=== PATIENT | female | born 1995 | race Caucasian/White ===

== ENCOUNTER 2017-12-27 20:00 | Emergency (ER) | payer OTHER, SELFPAY ==
[2017-12-27 20:02] VITALS: BP 142/76; PULSE 74; RESP 17; TEMP 37.2; O2SAT 100; BMI 25.4
--- NOTE | 2017-12-27 20:48 | ED.VISSUMM ---
- ER Visit Summary Date of Service: 12/27/17 Chief Complaint: I think I have a UTI History of Present Illness: The patient is a 22 F without any significant past medical history other than a prior UTI in August. Patient states she has had dysuria and hematuria starting this evening. No fever. No vomiting. No diarrhea. No vaginal bleeding. Last menstrual period ended one week ago. Physical Examination: Well-appearing young female. Vital signs are stable and afebrile. She does not look septic or toxic. She is in no acute distress. HEENT exam unremarkable. Neck nontender no lymphadenopathy. Lungs clear to auscultation bilaterally. Heart regular rate and rhythm no murmur. Abdomen is soft and nontender. Nondistended. Normal bowel sounds no peritoneal signs. She is moving all 4 extremities. Neurovascular intact. Nontender no edema. Back exam nontender. No CVA tenderness. Neurologic exam normal. Test Results: Urinalysis shows greater than 100 white blood cells. Greater than 100 red blood cells. No nitrates no bacteria. Given her symptoms of dysuria and hematuria I am comfortable treating this is a UTI. Emergency Department Course and Treatment: Patient treated his urinary tract infection/cystitis. Bactrim p.o. 1 twice daily for 5 days. Pyridium. Treatment Plan: Bactrim for 5 days. Return if worse. Referred to Dr. Casper Shook. Disposition: Discharge Impression: Acute urinary tract infection/cystitis This note was generated with [employer] dictation software. It may contain incorrect words, spelling, and punctuation that were not noted in review of the chart prior to signing ED Disposition - Plan for ED Patient: Chief Complaint: Complaint Referrals: NOT,DEFINED [NON-STAFF] -
[2017-12-27] MEDS: Ibuprofen 600 MG Tablet PO (20:56)
[2017-12-27] MEDS: Phenazopyridine 95 MG Tablet 190 MG PO (20:56)
[2017-12-27 21:04] LABS: Bacteria 0 SEEN /hpf (None Seen); Mucous, Urine 0 SEEN /hpf (<or=2+); Squamous Epithelial Cells - UA 0 SEEN /hpf (5-10)
[2017-12-27 21:05] LABS: Color, Urine Amber (Yellow); Glucose, Dipstick Normal (Normal); Ketone-Dipstick Negative (Negative); Leukocyte Esterase-Dipstick 500 /ul (Negative); Nitrite-Dipstick Negative (Negative); Occult Blood-Urine 250 /ul (Negative); Protein-Dipstick 100 mg/dl (Negative); Specific Gravity, Urine 1.015 (1.002-1.030); Urine Bilirubin Dipstick Negative (Negative); Urine Clarity Cloudy (Clear); Urine Urobilinogen Normal (Normal)
[2017-12-27 21:19] LABS: Red Blood Cells-Urine > 100 SEEN /hpf (0-5); White Blood Cells >100 SEEN /hpf (0-5)
--- NOTE | 2017-12-27 21:54 | ED.DEP ---
ED Disposition - Plan for ED Patient: Disposition: Home or Assisted Living Chief Complaint: Complaint Instructions: ED UTI Cystitis Female Prescriptions: Phenazopyridine HCl [Pyridium] 200 mg PO BID PRN PRN #6 tab PRN Reason: Pain Smz/Tmp Ds [Bactrim Ds] 1 tab PO BID #10 tab Referrals: Juan J Shook MD [STAFF PHYSICIAN] - 3-5 Days if not improving Additional Instructions: Plenty of fluids and rest. Cranberry juice. Tylenol and/or Motrin for. Pyridium for burning. Bactrim 1 pill twice a day for 5 days. Return if feeling worse or follow-up your primary care physician as needed.
[2017-12-27] MEDS: Smz/Tmp Ds Tablet 1 TABLET PO (21:59)
--- NOTE | 2017-12-27 22:02 | ED.RN ---
DISCHARGE INSTRUCTIONS GIVEN TO AND REVIEWED WITH PATIENT, PATIENT DENIES QUESTIONS OR CONCERNS AND VOICES UNDERSTANDING OF DISCHARGE INSTRUCTIONS. PT AMBULATES OUT OF ROOM WITHOUT DIFFICULTY.
== END 2017-12-27 22:04 | disposition home or self-care (01) ==
PROVIDERS: Emergency Provider Emergency Medicine
DX: N30.01 Acute cystitis with hematuria (principal); B96.89 Other specified bacterial agents as the cause of diseases classified elsewhere
CPT/HCPCS: 81001; 99283

== ENCOUNTER 2020-08-30 10:49 | Day surgery (SDC) | payer OTHER, SELFPAY ==
--- NOTE | 2020-08-28 16:09 | HP.PCM_ITS ---
History and Physical Date of Admission: 08/30/20 HPI: The patient is a 24 year old female presenting for pre-operative visit. She is scheduled for?laparoscopic bilateral salpingectomy, for?sterilization? on?08/30. ??Procedure discussed along with risks, benefits and complications. ?Other alternatives discussed for management. Consent form signed??Yes.? PAST MEDICAL HISTORY PAST MEDICAL HISTORY Diagnosis Date ? Allergic rhinitis, cause unspecified ? ? Allergic rhinitis ? ? PAST SURGICAL HISTORY PAST SURGICAL HISTORY Procedure Laterality Date ? UNSPECIFIED ORAL SURGERY PROCEDURE, BY REPORT ? ? ? [place] ? ? CURRENT MEDICATIONS Current Outpatient Medications Medication Sig Dispense Refill ? Desogestrel-Ethinyl Estradiol (APRI) 0.15-0.03 mg per tablet Take 1 tablet by mouth once daily. Take active pills only. 4 Package 11 ? cranberry fruit extract (CRANBERRY ORAL) Take by mouth. ? ? ? B.ANI/L.ACI/L.ALIYA/L.PLAN/L.RAQUEL (PROBIOTIC FORMULA ORAL) Take ?by mouth. ? ? ? BIOTIN ORAL Take ?by mouth once daily. ? ? ? phenazopyridine (PYRIDIUM) 200 mg tablet Take 200 mg by mouth three times daily as needed. ? ? ? sulfamethoxazole-trimethoprim (BACTRIM) 400-80 mg per tablet Take 1 tablet by mouth twice daily. ? ? ? azithromycin (ZITHROMAX) 500 mg tablet 2 tab po X 1 (Patient not taking: Reported on 09/23/2018 ) 2 tablet 0 ? PYRIDOXINE HCL (VITAMIN B-6 ORAL) Take ?by mouth once daily. ? ? ? CALCIUM CARBONATE/VITAMIN D3 (VITAMIN D-3 ORAL) Take ?by mouth once daily. ? ? ? CETIRIZINE HCL (ZYRTEC ORAL) Take ?by mouth once daily. ? ? ? No current facility-administered medications for this visit.? ? ALLERGIES:?Seasonal Allergies ? PERSONAL HISTORY:? SOCIAL HISTORY Social History ? Tobacco Use ? Smoking status: Never Smoker ? Smokeless tobacco: Never Used Substance Use Topics ? Alcohol use: Yes ? ? Comment: Occasionally ? Drug use: Yes ? ? Types: Marijuana ? ? Comment: Occasionally ? FAMILY HISTORY:? FAMILY HISTORY FAMILY HISTORY Problem Relation Age of Onset ? Diabetes Mother ? ? Multiple Sclerosis Mother ? ? other (Celiac) Mother ? ? Heart Father ? ? other (back surgery) Father ? ? Cancer Maternal Grandmother ?Skin ? Cancer Maternal Grandfather ?Skin ? Brain Cancer Paternal Grandfather ? ? Heart Paternal Uncle ?SD ? Leukemia Other ?Paternal Great Uncle ? REVIEW OF SYMPTOMS: GENERAL: denies fevers or chills ENDOCRINOLOGY: has not been on steroids Cardiology : denies palpitations or chest pain Respiratory: denies SOB or cough Hematology: denies history of prolonged bleeding or easy bruising or VTE Allergy: Denies history of personal or family history of allergy to anesthesia ? ? PHYSICAL EXAMINATION: ? VITALS:?Weight 173 lb (78.5 kg), last menstrual period 08/24/2019. ? GENERAL:??The patient is well nourished, well hydrated in no acute distress. ?, The patient is oriented to time, place, and person. NECK:?Supple. No lynphadenopathy, normal thyroid, no thyromegaly. LUNGS:?Clear to auscultation bilaterally. no wheezes, rhonchi or rales HEART:?Regular rate and rhythm, Normal heart sounds and No murmurs or gallops ? IMPRESSION:?sterilization request ? PLAN:???The risks/benefits/alternatives and personal involved for the planned?laparoscopic bilateral salpingectomy?were reviewed with the patient. Her questions were answered to her satisfaction and she desires to proceed. ?Consent was signed. ?I reviewed with her postop instructions and expectations. ? I have reviewed and updated past medical and surgical history, medications and allergies? This H&P was completed in my office on 08/28/2020. Procedure Criteria Procedure Type: Elective COVID Risk Discussion: The surgeon/proceduralist and patient have discussed in detail the risk of exposure to and/or potential harm posed by the COVID-19 virus with having a surgery/procedure at this time versus the risk of delaying the surgery/procedure. It is not possible to know either the risk of delaying the surgery or procedure or chance of getting an infection with perfect accuracy, but a joint decision was made between the patient and the surgeon/proceduralist to proceed at this time with the scheduled surgery/procedure as indicated on the consent form.
[2020-08-30] VITALS (7 sets, daily range): BP systolic 108–141; BP diastolic 66–92; PULSE 50–83; RESP 14–18; TEMP 36.3–37.3; O2SAT 98–100; BMI 26.6
[2020-08-30 11:26] LABS: Internal QC Validated? YES +Cl - CLEAR BKGD; Pregnancy, Urine Negative Negative
[2020-08-30] MEDS: Lactated Ringers 1,000 ML 40 ML IV ×2 (11:32→13:15)
[2020-08-30 11:33] LABS: Hematocrit 44.3 % (37-47); Hemoglobin 15.3 g/dL (12.0-15.0); Mean Corp Hgb Conc 34.5 g/dL (32-36); Mean Corpuscular Hgb 30.2 pg (27.0-32.0); Mean Corpuscular Volume 87.5 fL (81-99); Mean Platelet Vol. 9.4 fl (6.2-12.0); Platelet Count 255 K/mm3 (150-450); RBC Distribution Width CV 11.3 % (11.6-14.6); Red Blood Count 5.06 M/mm3 (4.2-5.4); White Blood Count 5.4 K/mm3 (4.4-11.0)
[2020-08-30 11:34] LABS: Scan Indicated on CBC? Y/N NO
--- NOTE | 2020-08-30 12:30 | FALS_PTH ---
PATIENT: JILLIAN SCOTT LOC: [facility] [place] U#:[id number] AGE/SX: 24/F ROOM: RE08/30/[address]: Dr. Maddie Colon MD : [id number] BED: DIS: 08/30/2020 SPEC #: [id number] RECD: 08/30/20 13:56 STATUS: SHUBHAM REJagjit #: [id number] HUGO: 08/30/20 12:[address]: Maddie Colon DEPT: SURGICAL PATHOLOGY RECD BY: Angela Atkinson ENTERED: 08/31/20 06:51 SP TYPE: FALL TUBES OTHR DR: No Primary Care Phys Tissues: Fallopian tube Procedures: Surgery Specimen Level II HEADER OPERATION: Laparoscopic salpingectomy PRE-OP DIAGNOSIS: Sterilization TISSUE SUBMITTED: Bilateral fallopian tubes MICROSCOPIC DIAGNOSIS Bilateral fallopian tubes, salpingectomy: Bilateral fallopian tubes including fimbrial ends, no pathologic diagnosis. MARINE:don 09/03/20 MICROSCOPIC DESCRIPTION Slides are reviewed. GROSS DESCRIPTION Received in fixative is one container labeled with the patient's name and designated bilateral fallopian tubes. The specimen consists of bilateral fallopian tubes including fimbrial ends measuring 7 cm in length and 0.8 cm in diameter and 6 cm in length and 0.7 cm in diameter. The fallopian tubes are not identified as right or left. Sections reveal unremarkable cut surfaces. Spring Former Machine sections are submitted in two cassettes with each cassette containing one fallopian tube. / SJ:don 08/31/20 TC:4 [facility]: [id number] x2
--- NOTE | 2020-08-30 12:35 | PCM.DC.TUB ---
Discharge Diet: No Restrictions - Increase fluid intake for the next 48 hours. Discharge Activity: Return to Normal Activity, May Drive - when you are no longer taking pain/narcotic meds., May Shower, May Take a Tub Bath - in 7 days Additional Activity Instructions:: Ambulate often the next week after surgery. Nothing in the vagina for 5 days. Call your doctor if your incision/area has: Continuous Slow Oozing, Sudden Increased Bleeding, Increased Pain/ Swelling, Increased Redness, Foul Smelling Discharge Call your doctor if you observe: Fever of 101 or Higher Cleanse incision/area with: Soap & Water, - - Incision has skin glue. It can get wet. Please leave it on until it falls off Allergies/Adverse Reactions: Allergies No Known Allergies Allergy (Verified 08/20/20 14:01) Medications to take at Discharge Cranberry 500 mg PO DAILY 08/20/20 Desogestrel-Ethinyl Estradiol [Apri 28 Day Tablet] 1 ea PO DAILY 08/20/20 Ibuprofen [Motrin] 600 mg PO Q6H PRN #60 tab 08/30/20 Oxycodone [Oxyir] 2.5 mg PO Q6H PRN PRN 2 Days #5 tablet 08/30/20 The following prescriptions were given: Ibuprofen [Motrin] 600 mg PO Q6H PRN #60 tab PRN Reason: Pain Transmission Status: Pending to [id number] Oxycodone [Oxyir] 2.5 mg PO Q6H PRN PRN 2 Days #5 tablet PRN Reason: severe pain Transmission Status: Received by [id number] Primary Care Physician: Care Physician,No Primary [Primary Care Provider] - Test Results: Test results from this visit will be discussed in further detail at your follow-up appointment, if applicable. Please Follow Up With: Maddie Colon MD - [phone] When: 2-4 weeks or as needed
[2020-08-30] MEDS: Bupivacaine Mpf 0.5% 30 ML VIAL (13:00)
--- NOTE | 2020-08-30 13:16 | PCM.OPRPT ---
Report of Operation Date of Procedure: 08/30/20 Pre-Operative Diagnosis: Sterilization request Post-Operative Diagnosis: Same Surgery/Procedure Performed:: Laparoscopic bilateral salpingectomy Description of Surgical Findings:: Normal uterus tubes and ovaries. director of materials management: Geovanna Barber Type of Anesthesia:: General Anesthesiologist: Kraig Tidwell Special Medications: none Specimen's removed: bilateral fallopian tubes Drains: none Estimated Blood Loss (mL): 5 Fluids Replaced: 1000 mL Description of Procedure: The patient was taken to the operating room where she was prepped and draped in the dorsolithotomy position. A weighted speculum was placed in the vagina and the anterior lip of the cervix was grasped with a tenaculum. The Lulu uterine manipulator was placed and the remainder of the instruments were removed from the vagina. Attention was turned to the abdomen. All port sites were infiltrated with 0.5% Marcaine before skin incisions were made. A 5 mm intraumbilical incision was made. The anterior abdominal wall was tented up with 2 towel clamps while a 5 mm blade less trocar and sleeve were directly inserted. Intraperitoneal placement was confirmed with the laparoscope. The pneumoperitoneum was created and the underlying abdominal contents were intact. The patient was placed in Trendelenburg. Right and left lower quadrant ports were placed under direct visualization lateral to the inferior epigastric vessels. The bowel was swept away and the above findings were noted. The LigaSure device was used to clamp seal and transect the antimesenteric portions of the right tube to the cornual insertion of the uterus. The tube was amputated from the uterus and the pedicles were all confirmed to be hemostatic. The same procedure was performed on the contralateral side. The specimens were brought out through a 5 mm port. The pedicles were again examined and found to be hemostatic. The lateral ports were removed under direct visualization and no active bleeding was noted. The pneumoperitoneum was released. The skin incisions were closed with Monocryl suture in a subcuticular fashion and skin glue. The vaginal instruments were removed and the vaginal sweep was completed by me. The entire procedure was performed by me with assistance. All sponge and needle counts were correct and the patient was taken to the recovery room in stable condition. Start time 1253 Stop [id number] Grafts/Implants Used: none - Complications none - Admit VTE Documentation VTE Present on Admission: No VTE Mechan Device Prophylaxis: SCD's VTE Pharm Prophylaxis ordered?: No Reason prophylaxis not ordered:: Procedure Not Indicated
[2020-08-30] MEDS: HYDROcodone Bitartrate/Apap 5/325 Tablet PO (15:20)
== END 2020-08-30 16:04 | disposition home or self-care (01) ==
LOC: SDC 10:51 → AC 10:52
PROVIDERS: Anesthesiology; Referring Provider Obstetrics & Gynecology; Visit Provider Obstetrics & Gynecology
PROC: (CPT 58661; principal; 2020-08-30 12:15)
DX: Z30.2 Encounter for sterilization (principal); Z20.828 Contact with and (suspected) exposure to other viral communicable diseases
CPT/HCPCS: 58661; 81025; 85027; 87635; 88302; C9803; J7120; J2405; U0003